=== PATIENT | female | born 1940 | race Caucasian/White ===

== ENCOUNTER → 2016-07-04 | Outpatient (CLI) | payer OTHER, BC ==
[~2016-07-04] MED LIST: ACET-1256 PO; AMIT25TA19 PO; ASPEC81 PO; BIMA0.01 OPB; CHOL100027 PO; LEVO112T17 PO; METH500T37 PO; SIMV-151 PO; SULI200T4 PO
[2016-07-04 13:46] LABS: THYROID STIMULATING HORMONE 1.86 uIu/ml (0.300-4.500)
== END | disposition home or self-care (01) ==
LOC: C.LABPBG 08:09
PROVIDERS: ATTEND Family Medicine
DX: E03.9 Hypothyroidism, unspecified (principal)

== ENCOUNTER → 2016-12-29 | Outpatient (CLI) | payer OTHER, BC ==
[2016-12-29 12:32] LABS: MEAN CORPUSCULAR HGB CONC 33.1 g/dl (32-36); MEAN PLATELET VOLUME 11.2 fL (7.4-10.4); PLATELET COUNT 275 K/uL (130-400)
[2016-12-29 12:59] LABS: ALT/SGPT 22 U/L (12-78); BLOOD UREA NITROGEN 12 mg/dl (7-18); BUN/CREATININE RATIO 15.9 (10-20); CALCIUM 8.6 mg/dl (8.5-10.1); CARBON DIOXIDE 28 mmol/L (21-32); CHLORIDE 107 mmol/L (98-107); CHOLESTEROL 215 mg/dl (0-200); CREATININE 0.74 mg/dl (0.60-1.20); GLUCOSE 83 mg/dl (70-99); POTASSIUM 3.7 mmol/L (3.5-5.1); SODIUM 139 mmol/L (136-145); TRIGLYCERIDES 117 mg/dl (0-150); VERY LOW DENSITY LIPOPROT CALC 23 mg/dl
[2016-12-29 13:09] LABS: ALKALINE PHOSPHATASE 124 U/L (45-117); AST/SGOT 19 U/L (15-37); CHOLESTEROL/HDL RATIO 4.8; FERRITIN 16.8 ng/ml (8.0-388.0); HDL CHOLESTEROL 45 mg/dl; LDL CHOLESTEROL CALCULATED 147 mg/dl
[2016-12-29 13:32] LABS: HEMATOCRIT 42.3 % (37-47); MEAN CELL VOLUME 97.5 fL (80-100); MEAN CORPUSCULAR HEMOGLOBIN 32.3 pg (25-34); RED BLOOD COUNT 4.34 M/uL (4.2-5.4); WHITE BLOOD COUNT 4.93 K/uL (4.8-10.8)
[2016-12-29 13:35] LABS: BASO ABS # 0.13 K/uL (0-0.2); BASOPHIL % 2.7 %; COMPLETE YES; ECHINOCYTES 2+; EOSINOPHIL % 2.7 %; LYMPH ABS # 1.28 K/uL (1.2-3.4); LYMPHOCYTE % 25.9 %; NEUTROPHILS % 58.9 %
== END | disposition home or self-care (01) ==
LOC: C.LABPBG 08:04
PROVIDERS: ATTEND Family Medicine
DX: E03.9 Hypothyroidism, unspecified (principal); I10 Essential (primary) hypertension; E78.5 Hyperlipidemia, unspecified; E61.1 Iron deficiency

== ENCOUNTER → 2017-02-20 | Outpatient (CLI) | payer OTHER, BC ==
--- NOTE | 2017-02-20 15:50 | MAMMOGRAPHY REPORT ---
BILATERAL DIGITAL SCREENING MAMMOGRAM WITH CAD: 02/20/2017 CLINICAL HISTORY: Routine screening. Patient has no complaints. TECHNIQUE: Bilateral CC and MLO views were obtained. Current study was also evaluated with a Compute r Aided Detection (CAD) system. COMPARISON: Comparison is made to exams dated: 02/19/2016 mammogram, 02/12/2015 mammogram, 01/20/2014 m ammogram, 11/19/2012 mammogram - [facility], 02/01/2008 mammogram, and 02/01/2008 mammog jennifer - [facility]. BREAST COMPOSITION: The tissue of both breasts is almost entirely fatty. FINDINGS: There are moderate vascular calcifications and a few scattered benign round calcifications in the breasts. No new suspicious mass, architectural distortion or cluster of microcalcifications i s seen. IMPRESSION: ACR BI-RADS CATEGORY 1: NEGATIVE There is no mammographic evidence of malignancy. A 1 year screening mammogram is recommended. The pa tient will receive written notification of the results. Approximately 10% of breast cancers are not detected with mammography. A negative mammographic report should not delay biopsy if a clinically suggestive mass is present. Tammy Richardson M.D. ay/:02/20/2017 15:10:19 Completion Manager: Coco GARCIA(R)(M), [facility] letter sent: Normal 1/2 BI-RADS Code: ACR BI-RADS Category 1: Negative
== END | disposition home or self-care (01) ==
LOC: C.MAMM 08:11
PROVIDERS: ATTEND Family Medicine
DX: Z12.31 Encounter for screening mammogram for malignant neoplasm of breast (principal)

== ENCOUNTER → 2017-06-26 | Outpatient (CLI) | payer OTHER, BC ==
[2017-06-26 13:01] LABS: BLOOD UREA NITROGEN 10 mg/dl (7-18); CARBON DIOXIDE 28 mmol/L (21-32); GLUCOSE 85 mg/dl (70-99); POTASSIUM 3.7 mmol/L (3.5-5.1); SODIUM 138 mmol/L (136-145)
[2017-06-26 13:11] LABS: CHOLESTEROL 203 mg/dl (0-200); LDL CHOLESTEROL CALCULATED 131 mg/dl
== END | disposition home or self-care (01) ==
LOC: C.LABPBG 07:49
PROVIDERS: ATTEND Family Medicine
DX: E03.9 Hypothyroidism, unspecified (principal); I10 Essential (primary) hypertension; E78.5 Hyperlipidemia, unspecified; E55.9 Vitamin D deficiency, unspecified

== ENCOUNTER → 2017-08-07 | Outpatient (CLI) | payer OTHER, BC ==
[2017-08-07 12:04] LABS: BASO ABS # 0.05 K/uL (0-0.2); EOS % 5.7 %; EOS ABS # 0.27 K/uL (0-0.5); HEMATOCRIT 40.7 % (37-47); HEMOGLOBIN 13.6 g/dL (12.0-16.0); IG# 0.01 K/uL (0.00-0.02); LYMPH % 37.5 %; LYMPH ABS # 1.79 K/uL (1.2-3.4); MEAN CELL VOLUME 93.6 fL (80-100); MEAN CORPUSCULAR HEMOGLOBIN 31.3 pg (25-34); MEAN CORPUSCULAR HGB CONC 33.4 g/dl (32-36); MONO % 7.5 %; MONO ABS # 0.36 K/uL (0.11-0.59); NEUT % 48.1 %; NEUT ABS # 2.29 K/uL (1.4-6.5); PLATELET COUNT 280 K/uL (130-400); RED CELL DISTRIBUTION WIDTH SD 44.8 fL (36.4-46.3); WHITE BLOOD COUNT 4.77 K/uL (4.8-10.8)
== END | disposition home or self-care (01) ==
LOC: C.LABPBG 08:28
PROVIDERS: ATTEND Family Medicine
DX: D64.9 Anemia, unspecified (principal); E03.9 Hypothyroidism, unspecified

== ENCOUNTER → 2017-12-14 | Outpatient (CLI) | payer OTHER, BC | END | disposition home or self-care (01) | LOC: C.LABPBG 09:02 | PROVIDERS: ATTEND Family Medicine | DX: G62.9 Polyneuropathy, unspecified (principal) ==

== ENCOUNTER 2019-10-09 05:07 | Inpatient (IN) ==
--- NOTE | 2019-10-03 15:56 | Anesthesiology Consultation ---
Date of Service October 03, 2019 Assessment & Plan (1) Encounter for pre-operative examination: Chart Review Chart Review: Acceptable Risk for Surgery and Patient NOT seen in Pre Admission Testing History Surgery Operation Date: 10/09/19 07:15 Proposed Procedures p Left Total Hip Replacement - Giorgio Carrero MD Height/Weight Height: 5 ft 4 in Weight: 66.224 kg Allergies Allergy/AdvReac Type Severity Reaction Status Date / Time omeprazole Allergy Severe Chest Pain Verified 10/03/19 14:54 morphine Allergy Mild Rash Verified 10/03/19 14:54 Medications Home Medications Medication Instructions Recorded Confirmed Last Taken walker #1 ea 02/18/19 09/30/19 Unknown amlodipine 5 mg tablet 5 mg PO DAILY #90 tab 05/20/19 10/03/19 Unknown amitriptyline 25 mg tablet 25 mg PO HS #90 tab 07/11/19 10/03/19 Unknown losartan 100 mg tablet 100 mg PO .COMPLEX #90 tab 08/13/19 10/03/19 Unknown levothyroxine 137 mcg tablet 137 mcg PO DAILY #30 tab 08/14/19 10/03/19 Unknown tramadol 50 mg tablet 50 mg PO Q8H PRN #90 tab 08/15/19 10/03/19 Unknown aspirin 81 mg PO QAM 10/03/19 10/03/19 Unknown brimonidine 1 drp OPB BID 10/03/19 10/03/19 Unknown cholecalciferol (vitamin D3) 250 mcg PO QAM 10/03/19 10/03/19 Unknown [Vitamin D3] Past Medical History Medical History Allergic rhinitis Anxiety disorder Avascular necrosis of bone of left hip Degenerative joint disease of left hip Diastolic dysfunction Glaucoma Hiatal hernia Hyperlipidemia Hypertension Hypothyroidism TSH > 8 when checked by PCP in 07/2019. PCP adjusted meds and pt was to have rpt labs but was not completed due to covid shutdown. Iron deficiency Mitral valve insufficiency Osteoporosis Polyneuropathy Tricuspid regurgitation Vitamin D deficiency Past Family History Family History Father Myocardial infarction Mother Depression Colorectal cancer Father Stroke Denies family history of Ovarian cancer Prostate cancer Breast cancer Past Surgical History Surgical History History of colonoscopy History of esophagogastroduodenoscopy (EGD) History of hysterectomy History of tooth extraction S/P appendectomy S/P cataract extraction RT/LEFT S/P dilation and curettage S/P ovarian cystectomy Social History Smoking Status: Never smoker Do You Dip or Chew Tobacco: No Hx Alcohol Use: No Hx Substance Use: No substance use type: does not use Testing Laboratory Results 09/30/19 WBC: 4.14 H/H: 10.9/34.8 PLATELETS: 356 SODIUM: 138 POTASSIUM: 3.7 CHLORIDE: 106 CO2: 25 BUN: 14 CREATININE: 0.75 GLUCOSE: 99 PT: 10.9 PTT: 23.7 INR: 1.0 Electrocardiogram Date: 09/30/19 Findings: + NSR @ (80bpm) Chest X-Ray Date: 09/30/19 FINDINGS: Atherosclerosis of the aortic arch. Cardiac silhouette normal in size. Lungs and pleural spaces clear. Osteopenia suspected. Mildly exaggerated thoracic kyphosis without focal compression deformity. Moderate hiatal hernia. IMPRESSION: 1. No acute cardiopulmonary disease. 2. Moderate hiatal hernia. Echocardiogram Date: 10/11/13 EF: 60-65% Study was technically adequate. No comparison study available. LV systolic function is normal. There is mild cLVH. Focal thickening of the basal septum (sigmoid septum) with no evidence of LV outflow tract obstruction. Grade I diastolic dysfunction. LA is mildly dilated. There is mild mitral and tricuspid regurgitation.
[2019-10-09] MEDS ORDERED: TRANEXAMIC ACID 1,000 MG **IV Pre-op IV SCH (06:00)
[2019-10-09] MEDS ORDERED: FAMOTIDINE 20 MG TAB PO SCH (06:00)
[2019-10-09] MEDS ORDERED: METOCLOPRAMIDE HCL 10 MG TABLET PO SCH (06:00)
[2019-10-09] MEDS ORDERED: ACETAMINOPHEN 500 MG TAB PO SCH (06:00)
[2019-10-09] MEDS ORDERED: LR 15ML/HR IV SCH (06:00)
[2019-10-09] MEDS ORDERED: CEFAZOLIN 2000MG 2,000 MG/15 ML SYR IV SCH (06:00)
[2019-10-09] MEDS ORDERED: LR 60ML/HR IV SCH (06:00)
[2019-10-09] MEDS ORDERED: GABAPENTIN 300 MG CAP PO SCH (06:00)
[2019-10-09] MEDS ORDERED: BUPIVACAINE 0.5 % 5 MG/1 ML PF 10ML VIAL ONE (06:12)
[2019-10-09] MEDS ORDERED: ONDANSETRON INJ 2 MG/ML 2 ML VIAL ONE ×2 (06:13→08:48)
[2019-10-09] MEDS: DEXTROSE 50% 50 ML SYRINGE IV ONE ×2 (06:34→06:55)
[2019-10-09] MEDS ORDERED: ONDANSETRON INJ 2 MG/ML 2 ML VIAL IV ONE (06:45)
[2019-10-09] MEDS ORDERED: DEXTROSE 50% 50 ML SYRINGE IV ONE (06:46)
[2019-10-09] MEDS ORDERED: fentaNYL citrate 100 MCG/2 ML VIAL ONE (06:47)
[2019-10-09] MEDS ORDERED: MIDAZOLAM HCL 1 MG/ML 2ML VIAL ONE (06:47)
--- NOTE | 2019-10-09 06:52 | History & Physical Bridge Note ---
Date of Service October 09, 2019 History & Physical Bridge Note I have examined the patient, reviewed the History & Physical and in the interval since the performance of the History & Physical I have noted the following changes of clinical significance: no changes noted
[2019-10-09] MEDS ORDERED: MoRPHine SULFATE PF 1 MG/ML 10 ML AMP/VIAL ONE (06:55)
[2019-10-09] MEDS ORDERED: BACITRACIN INJ 50,000 UNIT VIAL ONE (06:58)
[2019-10-09] MEDS ORDERED: HYDROmorphone INJ 1 MG/ML SYRINGE IV PRN (06:59)
[2019-10-09] MEDS ORDERED: ATROPINE SULFATE 0.1 MG/ML 10ML SYR IV PRN (06:59)
[2019-10-09] MEDS ORDERED: ePHEDrine sulfate 50 MG/ML AMP IV PRN (06:59)
[2019-10-09] MEDS ORDERED: LIDOCAINE HCL 2% 2 ML VIAL/AMP(20MG/ML) INFIL ONE (07:55)
[2019-10-09] MEDS ORDERED: PHENYLEPHRINE 100MCG/ML 5ML SYR ONE ×2 (07:55→08:30)
[2019-10-09] MEDS ORDERED: GLYCOPYRROLATE 0.2 MG/ML VIAL ONE (07:55)
[2019-10-09] MEDS ORDERED: PROPOFOL IV EMULSION 10 MG/ML 20 ML VIAL IV ONE ×2 (07:55→08:10)
[2019-10-09] MEDS: BUPIVACAINE/EPINEPHRINE 0.5% MPF 1:200,000 10 ML VIAL ONE ×2 (08:04→08:53)
[2019-10-09] MEDS ORDERED: ePHEDrine sulfate 50 MG/ML SYR ONE (08:30)
[2019-10-09] MEDS ORDERED: PHENYLEPHRINE HCL 10 MG/ML VIAL ONE (08:30)
--- NOTE | 2019-10-09 09:12 | Post Operative Brief Note ---
PG Immediate Post Op with CF Date of Surgery October 09, 2019 Pre & Post Diagnosis Operation Date: 10/09/19 07:15 Pre-Op Diagnosis: Left Hip Advanced Degenerative Joint Disease Secondary to Avascular Necrosis Post-Op Diagnosis: Left Hip Advanced Degenerative Joint Disease Secondary to Avascular Necrosis I identified the patient and participated in the time-out.: Yes Procedure Operation Date: 10/09/19 07:15 Actual Procedures p Left Hybrid Total Hip Arthroplasty--Cemented(Left) - Giorgio Carrero MD Surgeon Giorgio Carrero MD Mobile Mechanic Royal, PAC Estimated Blood Loss 200 Findings Consistent with Post-Op Diagnosis Fluids 1400 cc Specimens Specimen Description: A. Left Femoral Head Drains Dobson Catheter (10 Sami) Anesthesia Type Spinal MAC Complications none Disposition Accompanied Patient To Recovery: Yes Disposition: Recovery Room
[2019-10-09] MEDS ORDERED: MEPERIDINE HCL 25 MG/ML CARP/VIAL ONE (09:22)
--- NOTE | 2019-10-09 09:29 | Operative Report ---
Post Operative Report Pre & Post Diagnosis Operation Date: 10/09/19 07:15 Pre-Op Diagnosis: Left Hip Advanced Degenerative Joint Disease Secondary to Avascular Necrosis Post-Op Diagnosis: Left Hip Advanced Degenerative Joint Disease Secondary to Avascular Necrosis I identified the patient and participated in the time-out.: Yes Procedure Operation Date: 10/09/19 07:15 Actual Procedures p Left Hybrid Total Hip Arthroplasty--Cemented(Left) - Giorgio Carrero MD Surgeon iGorgio Carrero MD Senior Clinical Research Scientist Royal, PAC Estimated Blood Loss 200 Findings Consistent with Post-Op Diagnosis Operative findings revealed advanced left hip DJD. It did look like she had a subchondral fracture with avascular necrosis with secondary arthritis. She had some anterior acetabular osteophytes. Small hip joint effusion. Diffuse osteopenia. Fluids 1400 cc. Specimens Left femoral head sent for pathology. Drains None. Anesthesia Type Spinal MAC Complications none Disposition Accompanied Patient To Recovery: Yes Disposition: Recovery Room Indications Patient is an 79-year-old female who is had about a year history of increasing left hip pain discomfort. Over time x-ray showed a vast necrosis with collapse of the femoral head and progressive hip arthritis. She failed all conservative care. She was markedly limited by her hip problem. She was essentially limited to a wheelchair most of the time. Patient indicated for surgical management. Description of Procedure Operative implants consisted of: 1. Biomet size 48 mm G7 acetabular shell. 2. 6.5 cancellus acetabular screws 1 of 35 mm in length and 1 of 20 mm length. 3. Turner hole eliminator. 4. Highly cross-linked polyethylene liner with a 48 mm outer diameter, 32 mm diameter with a stroud placed inferior and posterior. 5. Vale Morenci cemented size 3 high offset femoral stem. 6. +5/32 mm metal articular ball. Patient is taken to the operating room identified and placed on the operating table supine position protectors were properly padded. IV antibiotics arrived by anesthesia team. A spinal anesthetic been implemented holding area. Dobson catheter was placed in sterile fashion. The patient was then placed in the right lateral decubitus position. An axillary roll was placed. A Stulberg hip positioner was used for positioning. The left hip and leg were then prepped and draped in usual sterile fashion. A posterior lateral approach to the left hip was then performed to a curvilinear incision centered over the greater trochanter. Sharp dissection Through subcutaneous tissue down of the IT band gluteal fascia the IT band gluteal fascia then incised longitudinally in line with skin incision. The underlying greater bursa was excised. The piriformis and external rotators were then tagged and taken off the posterior aspect of the hip joint capsule. Great care was taken throughout the procedure protect the sciatic nerve at all times. Posterior capsulotomy was then performed leaving a large flap for later repair. Hip was internally rotated and dislocated. A femoral neck osteotomy cut was made with Final Cut about 6 to 7 mm above the lesser trochanter. Femoral head was removed and sent for pathology. The femur was retracted anteriorly. Attention drawn the acetabulum. The acetabulum labrum was excised. The pulmonary fat was excised. Sequential reaming the acetabular is then performed with size 43 and progressing up to 47. I did reamed a 48. Her bone was extremely soft and cancellus. A 48 mm Biomet G7 acetabular shell was then placed in about 40 degrees lateral opening and 20 degrees of anteversion. It was fixed with two 6.5 cancellus acetabular screws. A trial liner was placed. Attention drawn the femur. Proximal femur was entered with a cookie-cutter followed by canal finder lateralizing reamer. I then broached begin with size 1 progressing to a 3. We got pretty good fit with a 3. I then trialed the hip. The +5 articular ball proceed with great leg lengths equal. Her soft tissue tension was still lax and she did tender with a lever with flexion and internal rotation such that her femoral neck levered on the some anterior pelvic bone. I then used the high offset in order to increase soft tissue tension maximize stability. I did elect to place a stroud inferior and posterior to maximize her stability in flexion. The hip was fully stable in full extension and external rotation. We elected to place these implants. All trial implants were removed. An apex hole eliminator was placed. A highly cross-linked polyethylene liner with a stroud placed inferior and posterior was then placed. I then irrigated the canal extensively. A cement restrictor was placed distally. A double batch Palacos G cement was mixed and injected in the canal. A Vale Morenci size 3 cemented stem was then placed. This is a high offset stem. All extraneous cement was removed. Once cement hardened I trialed the hip again and then placed a +5/32 mm metal articular ball. Hip was located once again found to be stable. Attention drawn toward closing. Nupathe wounds irrigated cups ounce pulsatile lavage solution. I did inject locally with 40 cc of half percent Marcaine with epinephrine. The posterior capsule and external rotators then repaired through drill holes in the posterior trochanter with #2 Tycron suture. The IT band gluteal fascia then closed in 1 PDS suture running fashion the subcutaneous tissue then closed with 2 layers the deep layer #1 Vicryl suture and subcutaneous tissues with 2-0 Dexon suture in a buried interrupted fashion the skin was closed skin celestina. Leg was then cleaned dried and sterile dressing composed Xeroform, 4 x 4's, sterile ABD pad and foam tape was applied. Patient then transferred to the recovery room in stable condition. Patient tolerated procedure well no complications. I attest to the content of the Intraoperative Record and any orders documented therein. Any exceptions are noted below.
[2019-10-09] MEDS ORDERED: DEXTROSE 50% 50 ML SYRINGE IV STA (09:43)
[2019-10-09] MEDS: fentaNYL citrate 100 MCG/2 ML VIAL IV PRN ×4 (09:57→10:19)
--- NOTE | 2019-10-09 09:57 | Anesthesiology Progress Note ---
Date of Service October 09, 2019 Anesthesia Post Procedure Vital Signs Vital Signs: Temp Pulse Pulse Resp BP BP Pulse Ox 10/09/19 09:50 36.8 C 94 H 19 143/90 H 97 10/09/19 09:40 92 H 24 132/73 98 10/09/19 09:30 90 16 125/74 99 10/09/19 09:20 89 16 129/77 100 10/09/19 09:12 36.1 C L 99 H 19 134/67 97 10/09/19 05:37 37.2 C 88 18 144/92 H 99 Transfer of Care Handoff Completed per policy Notes Mental Status: alert / awake / arousable and participated in evaluation Patient Amnestic to Procedure: Yes Nausea / Vomiting: adequately controlled Pain: adequately controlled Airway Patency, RR, SpO2: stable & adequate BP & HR: stable & adequate Hydration State: stable & adequate Neuraxial Anesthesia: was administered and sensory block is resolving Anesthetic Complications: no major complications apparent
--- NOTE | 2019-10-09 10:07 | XRay Report ---
XR hip 1V LT w pelvis CLINICAL HISTORY: 79 years-old Female presenting with IN PACU - A/P PELVIS and LATERAL HIP . TECHNIQUE: Single frontal view of the pelvis and crosstable lateral view of the left hip were obtaine d. COMPARISON: 02/18/2019. FINDINGS: Postsurgical changes of total left hip arthroplasty. Positioning of the femoral component relative to the acetabular component likely relates to positioning of the leg. Expected soft tissue emphysema an d overlying skin celestina. No periprosthetic fracture or lucency. This was portion of bony pelvis inta ct. Moderate joint space loss at the superior right hip joint with moderate osteophytosis. Osteopenia may be present. IMPRESSION: Expected postsurgical appearance status post total left hip arthroplasty. ACT 112: Negative or not required by law. Electronically signed by: Tyson Andre M.D. 10/09/2019 10:06 AM
[2019-10-09] MEDS ORDERED: METOCLOPRAMIDE HCL INJ 5 MG/ML 2 ML VIAL IV PRN (11:16)
[2019-10-09] MEDS ORDERED: NALOXONE HCL 0.4 MG/1 ML VIAL/CARP IV PRN (11:16)
[2019-10-09] MEDS ORDERED: ALUMINUM/MAGNESIUM SUSP 30 ML UDC PO PRN (11:16)
[2019-10-09] MEDS ORDERED: MAGNESIUM HYDROXIDE SUSP 30 ML UDC PO PRN (11:16)
[2019-10-09] MEDS ORDERED: bisacodyL 10 MG SUPP PR PRN (11:16)
[2019-10-09] MEDS ORDERED: HYDROmorphone INJ 0.5 MG/0.5 ML SYR IV PRN (11:16)
[2019-10-09] MEDS: CEFAZOLIN 1000MG 1,000 MG/7.5 ML SYR IV SCH ×3 (11:28→22:50)
[2019-10-09] MEDS: SODIUM CHLORIDE 0.9% 1000ML 1,000 ML IV SCH ×2 (12:24→22:49)
[2019-10-09] MEDS: POLYETHYLENE (MIRALAX) 17 GM PACK PO SCH (12:25)
[2019-10-09] MEDS: CHOLECALCIFEROL 1,000 UNITS 25 MCG TAB PO SCH (12:25)
[2019-10-09] MEDS: LOSARTAN POTASSIUM 50 MG TAB PO SCH ×2 (12:25→21:39)
[2019-10-09] MEDS: KETOROLAC TROMETHAMINE 15 MG/ML VIAL IV SCH ×3 (12:29→22:56)
[2019-10-09] MEDS: ACETAMINOPHEN 500 MG TAB PO SCH ×2 (12:56→21:46)
[2019-10-09] MEDS ORDERED: TRANEXAMIC ACID / 0.7% NACL 1,000 MG/100 ML BAG IV SCH (16:00)
[2019-10-09] MEDS: FERROUS GLUCONATE 324 MG TAB PO SCH (17:18)
[2019-10-09] MEDS: ASCORBIC ACID 500 MG TAB PO SCH (17:18)
[2019-10-09] MEDS: TRAMADOL HCL 50 MG TABLET PO PRN (19:31)
[2019-10-09] MEDS: SENNA 8.6 MG TAB PO SCH (21:39)
[2019-10-09] MEDS: DOCUSATE SODIUM 100 MG CAP PO SCH (21:39)
[2019-10-09] MEDS: ASPIRIN 81 MG ECTAB PO SCH (21:40)
[2019-10-09] MEDS: AMITRIPTYLINE HCL 25 MG TAB PO SCH (21:40)
[2019-10-09] MEDS: BRIMONIDINE TART 0.2% OP SOLN PER DROP CHARGE OPB SCH (21:42)
[2019-10-10] MEDS: ACETAMINOPHEN 500 MG TAB PO SCH ×3 (06:06→21:10)
[2019-10-10] MEDS: KETOROLAC TROMETHAMINE 15 MG/ML VIAL IV SCH ×3 (06:06→18:34)
[2019-10-10] MEDS: LEVOTHYROXINE SODIUM 137 MCG TABLET PO SCH (06:06)
[2019-10-10 07:48] LABS: Basophils # (auto) 0.02 K/uL (0-0.2); Basophils % (auto) 0.3 %; Eosinophils # (auto) 0.09 K/uL (0-0.5); Eosinophils % (auto) 1.3 %; Hematocrit (blood only) 26.7 % (37-47); Hemoglobin 8.6 g/dL (12.0-16.0); Immature Granulocytes # (auto) 0.01 K/uL (0.00-0.02); Immature Granulocytes % (auto) 0.1 %; Lymphocytes % (auto) 15.9 %; Mean Corpuscular Hgb Conc 32.2 g/dL (32-36); Mean Platelet Volume 10.7 fL (7.4-10.4); Monocytes # (auto) 0.66 K/uL (0.11-0.59); Monocytes % (auto) 9.5 %; Neutrophils # (auto) 5.05 K/uL (1.4-6.5); Neutrophils % (auto) 72.9 %; Platelet Count 239 K/uL (130-400); RDW Coefficient of Variation 14.8 % (11.5-14.5); RDW Standard Deviation 46.8 fL (36.4-46.3); Red Blood Count 3.07 M/uL (4.2-5.4); White Blood Count 6.93 K/uL (4.8-10.8)
[2019-10-10 08:18] LABS: Calcium 7.8 mg/dl (8.5-10.1); Creatinine Clr Calc Pharmacy 54.6 ml/min; Est GFR (African American) 93.2; Est GFR (Non-African American) 80.4; Potassium 3.7 mmol/L (3.5-5.1)
[2019-10-10] MEDS: DOCUSATE SODIUM 100 MG CAP PO SCH ×2 (08:35→21:13)
[2019-10-10] MEDS: CHOLECALCIFEROL 1,000 UNITS 25 MCG TAB PO SCH (08:35)
[2019-10-10] MEDS: ASCORBIC ACID 500 MG TAB PO SCH ×2 (08:35→16:30)
[2019-10-10] MEDS: MULTIVITAMIN TAB PO SCH (08:35)
[2019-10-10] MEDS: ASPIRIN 81 MG ECTAB PO SCH ×2 (08:35→21:13)
[2019-10-10] MEDS: BRIMONIDINE TART 0.2% OP SOLN PER DROP CHARGE OPB SCH (08:36)
[2019-10-10] MEDS: LOSARTAN POTASSIUM 50 MG TAB PO SCH ×2 (08:36→21:16)
[2019-10-10] MEDS: AMLODIPINE BESYLATE 5 MG TAB PO SCH (08:36)
[2019-10-10] MEDS: FERROUS GLUCONATE 324 MG TAB PO SCH ×2 (08:37→16:30)
[2019-10-10] MEDS: TRAMADOL HCL 50 MG TABLET PO PRN (08:42)
--- NOTE | 2019-10-10 09:05 | Progress Notes ---
DATE: 10/10/2019 SUBJECTIVE: An 79-year-old female postop day 1 from a left hybrid total hip arthroplasty. She is doing pretty well this morning. Pain seems to be controlled. Some discomfort but seems to be much better than she was preoperatively. Denies any chest pain or shortness of breath. Not feeling dizzy or lightheaded. OBJECTIVE: VITAL SIGNS: Temperature 37.1. Vital signs are stable. GENERAL: Shows a pleasant elderly female. She is sitting up in bed, looks completely comfortable. LUNGS: Clear to auscultation. HEART: Has a regular rate and rhythm. ABDOMEN: Soft, nontender, nondistended. EXTREMITIES: Grossly neurovascularly intact except as follows: Examination of the left lower extremity reveals the leg lengths to be equal. Her dressing is clean, dry and intact. Thigh is soft and supple. She can dorsiflex and plantarflex her foot appropriately. She is neurologically intact. LABORATORY DATA: Hemoglobin 8.6, hematocrit 26.7. Electrolytes are pending. ASSESSMENT: An 79-year-old white female postoperative day 1 from a left hybrid total hip arthroplasty, doing well. Pain seems to be controlled. She is slightly anemic, but asymptomatic. Pain seems to be controlled. Hip is located. She is neurologically intact. PLAN: 1. DVT prophylaxis including thigh-high TEDs, SCDs, and aspirin twice a day. 2. PT/OT. She can weightbear as tolerated. Left total hip protocol. 3. Pain control, doing pretty well with current pain regimen. 4. Disposition: She is hoping to be discharged to home. She can have home health and she has got some family support that is going to come and stay with her.
[2019-10-10] MEDS: ONDANSETRON INJ 2 MG/ML 2 ML VIAL IV PRN (18:34)
[2019-10-10] MEDS: BRIMONIDINE TARTRATE 0.2% 5ML OP SCH (21:12)
[2019-10-10] MEDS: AMITRIPTYLINE HCL 25 MG TAB PO SCH (21:13)
[2019-10-10] MEDS: SENNA 8.6 MG TAB PO SCH (21:15)
[2019-10-11] MEDS: KETOROLAC TROMETHAMINE 15 MG/ML VIAL IV SCH ×2 (03:11→08:24)
[2019-10-11] MEDS: LEVOTHYROXINE SODIUM 137 MCG TABLET PO SCH (06:15)
[2019-10-11] MEDS: ACETAMINOPHEN 500 MG TAB PO SCH ×3 (06:15→21:37)
[2019-10-11 07:18] LABS: Hematocrit (blood only) 27.2 % (37-47); Hemoglobin 8.8 g/dL (12.0-16.0)
--- NOTE | 2019-10-11 07:50 | Progress Notes ---
DATE: 10/11/2019 SUBJECTIVE: An 79-year-old female postop day 2 from a left total hip replacement. She is doing pretty well this morning. Pain is controlled. She was having some groin pain previously, but seems to be controlled. No chest pain or shortness of breath. Not feeling dizzy or lightheaded. OBJECTIVE: VITAL SIGNS: Temperature 37.5. Vital signs stable. GENERAL: Shows a pleasant elderly female. She is awake, alert and oriented. I had to wake her this morning. EXTREMITIES: Examination of the left hip reveals leg lengths to be equal. Dressing is clean, dry and intact. Thigh is soft and supple. Hip is located. NEUROLOGIC: She is neurologically intact. LABORATORY DATA: Hemoglobin is 8.8, hematocrit 27.2, slightly increased from yesterday. ASSESSMENT: An 79-year-old female postoperative day 2 from a left hip replacement, doing pretty well. Pain is reasonably well controlled. Biggest thing is going to be her function and ability to be safe in her home environment. Pain is controlled. Hip is located. PLAN: 1. DVT prophylaxis including thigh-high TEDs, SCDs, and aspirin twice a day. 2. PT/OT. She can weightbear as tolerated in her left lower extremity. Needs to obey hip precautions. 3. Pain control, doing okay with current pain regimen. We are going to stick to Tylenol and use tramadol, which she has used previously. 4. Disposition: We will see how she does in therapy today. Plans to discharge her to home with some home health. Her son is going to come and stay with her today and her daughter is going to be there for a week after that.
[2019-10-11] MEDS: CHOLECALCIFEROL 1,000 UNITS 25 MCG TAB PO SCH (08:24)
[2019-10-11] MEDS: MULTIVITAMIN TAB PO SCH (08:24)
[2019-10-11] MEDS: AMLODIPINE BESYLATE 5 MG TAB PO SCH (08:25)
[2019-10-11] MEDS: ASCORBIC ACID 500 MG TAB PO SCH ×2 (08:25→17:46)
[2019-10-11] MEDS: FERROUS GLUCONATE 324 MG TAB PO SCH ×2 (08:25→17:47)
[2019-10-11] MEDS: BRIMONIDINE TARTRATE 0.2% 5ML OP SCH ×2 (08:25→21:35)
[2019-10-11] MEDS: ASPIRIN 81 MG ECTAB PO SCH ×2 (08:25→21:36)
[2019-10-11] MEDS: LOSARTAN POTASSIUM 50 MG TAB PO SCH ×2 (08:25→21:47)
[2019-10-11] MEDS: DOCUSATE SODIUM 100 MG CAP PO SCH ×2 (08:25→21:35)
[2019-10-11] MEDS: ONDANSETRON INJ 2 MG/ML 2 ML VIAL IV PRN ×2 (09:01→16:47)
[2019-10-11] MEDS: POLYETHYLENE (MIRALAX) 17 GM PACK PO SCH (13:33)
[2019-10-11] MEDS: AMITRIPTYLINE HCL 25 MG TAB PO SCH (21:36)
[2019-10-11] MEDS: SENNA 8.6 MG TAB PO SCH (21:36)
[2019-10-12] MEDS: TRAMADOL HCL 50 MG TABLET PO PRN (01:27)
[2019-10-12] MEDS: LEVOTHYROXINE SODIUM 137 MCG TABLET PO SCH (05:30)
[2019-10-12] MEDS: ACETAMINOPHEN 500 MG TAB PO SCH (05:30)
[2019-10-12] MEDS: BRIMONIDINE TARTRATE 0.2% 5ML OP SCH (08:37)
[2019-10-12] MEDS: CHOLECALCIFEROL 1,000 UNITS 25 MCG TAB PO SCH (08:37)
[2019-10-12] MEDS: FERROUS GLUCONATE 324 MG TAB PO SCH (08:37)
[2019-10-12] MEDS: ASCORBIC ACID 500 MG TAB PO SCH (08:37)
[2019-10-12] MEDS: MULTIVITAMIN TAB PO SCH (08:37)
[2019-10-12] MEDS: AMLODIPINE BESYLATE 5 MG TAB PO SCH (08:37)
[2019-10-12] MEDS: DOCUSATE SODIUM 100 MG CAP PO SCH (08:37)
[2019-10-12] MEDS: ASPIRIN 81 MG ECTAB PO SCH (08:37)
[2019-10-12] MEDS: LOSARTAN POTASSIUM 50 MG TAB PO SCH (08:37)
--- NOTE | 2019-10-12 09:15 | Progress Notes ---
DATE: 10/12/2019 SUBJECTIVE: An 79-year-old female now 3 days out from a hybrid left total hip replacement. She is doing better this morning. She had a little bit low blood pressure yesterday and was feeling a little dizzy. Feeling better this morning. No chest pain or shortness of breath. Not feeling dizzy or lightheaded. Her hip pain is controlled. OBJECTIVE: VITAL SIGNS: Temperature 36.9. Vital signs stable. Blood pressure 101/60. GENERAL: Shows a pleasant elderly female. She is lying in bed. She is awake, alert and oriented. She looks comfortable. EXTREMITIES: Examination of the left leg reveals incision to be clean, dry and intact. Some mild swelling. Her leg lengths are equal. Hip is located. She is neurologically intact. ASSESSMENT: An 79-year-old female postoperative day 3 from a left hybrid total hip replacement, doing pretty well. Had some hypotension yesterday with mild symptoms, but better this morning. Pain is controlled. Hip is located. She is neurologically intact. PLAN: 1. DVT prophylaxis including thigh-high TEDs, SCDs, and aspirin twice a day. 2. PT/OT. She can weightbear as tolerated in the left lower extremity. Needs to obey hip precautions. 3. Pain control. We are going to stick to Tylenol as much as possible. We will use tramadol only as needed. 4. Anemia. She has got some mild underlying anemia. She is asymptomatic and her hemoglobin and hematocrit are stable. 5. Disposition: Plan to discharge her home with some home health and her family's assistance, hopefully later today after therapy.
--- NOTE | 2019-10-15 11:16 | Discharge Summary ---
Date of Service October 15, 2019 Admission HPI Per Admitting Provider Documented in admission H & P Discharge Data Consultations 10/10/19 08:00 Consult Case Management - Discharge Planning Routine Procedures Performed Operation Date: 10/09/19 07:15 Actual Procedures p Left Total Hip Arthroplasty--Cemented(Left) - Giorgio Carrero MD Hospital Course (1) Degenerative joint disease of left hip: (2) Avascular necrosis of bone of left hip: 79-year-old female admitted on 10/09/2019 underwent left total hip arthroplasty. She tolerated the procedure well there were no complications. She was transferred to the PACU postoperatively and later the orthopedic floor for further care. She was given Ancef for antibiotic prophylaxis. She was also given JUAN DANIEL stockings, SCDs, aspirin for DVT prophylaxis. Her hemoglobin, hematocrit, and vital signs were monitored during her hospital stay. She did develop some postoperative anemia but did not require any blood transfusions. She had some hypotension on postoperative day 2 which did improve. There were no complications during her hospital stay. By postoperative day 3 she was tolerating a regular diet. She is participating in physical therapy and her pain was reasonably controlled with oral pain medicine. Discharge Instructions She was discharged home step with home health services. She was given printed discharge instructions as well as new prescriptions for Tylenol, aspirin, iron supplement and tramadol. Continue her normal home medications. She can continue weightbearing as tolerated and should obey hip precautions at all times. Continue physical therapy. Continue JUAN DANIEL stockings for DVT prophylaxis. Follow-up with Dr. Carrero in approximately 2 weeks or sooner if there are any problems or concerns. Coding Level of Care Code None Diagnoses Degenerative joint disease of left hip M16.12 Avascular necrosis of bone of left hip M87.052
== END 2019-10-12 11:12 | disposition home health service (06) | DRG 470 ==
LOC: ASU 05:07 → 3E 09:23
DX: Z81.8 Family history of other mental and behavioral disorders; Z60.2 Problems related to living alone; F41.9 Anxiety disorder, unspecified; Z88.8 Allergy status to other drugs, medicaments and biological substances; M89.752 Major osseous defect, left pelvic region and thigh; E55.9 Vitamin D deficiency, unspecified; E03.9 Hypothyroidism, unspecified; Z82.49 Family history of ischemic heart disease and other diseases of the circulatory system; I10 Essential (primary) hypertension; Z79.82 Long term (current) use of aspirin; Z79.899 Other long term (current) drug therapy; M81.0 Age-related osteoporosis without current pathological fracture; Z91.81 History of falling; H40.9 Unspecified glaucoma; M16.7 Other unilateral secondary osteoarthritis of hip; Z88.5 Allergy status to narcotic agent; M87.852 Other osteonecrosis, left femur; D64.9 Anemia, unspecified; F32.9 Major depressive disorder, single episode, unspecified

== ENCOUNTER 2024-08-22 12:32 | Observation (INO) ==
--- NOTE | 2024-08-22 12:52 | Emergency Department Note ---
Impression & Plan Atrial fibrillation with RVR, MAGAÑA (dyspnea on exertion) ED Provider Note NAME: BRANDEE VELEZ AGE: 83 SEX: F : 1940 ARRIVES VIA: Walk-In INFORMANT: Patient, son, prior records ED PROVIDER(S): Kevin Licona MD CHIEF COMPLAINT: Dyspnea on exertion, new onset A-fib with RVR MEDICAL DECISION MAKING: Patient presents due to concern for MAGAÑA and noted to be in A-fib with RVR. IV was established and blood work was obtained. Patient was ordered IV Cardizem 10 mg. Patient did have improvement in her rate from the 140s to the 90s. Patient with a normal white count H&H and platelet count. The patient's kidney function is unremarkable. Troponin not elevated. TSH normal. Chest x-ray stable. Patient was ordered IV heparin. I did speak the on-call hospital service Dr. Evans and the patient was admitted to the medicine service. Critical Care: I have personally spent 37 minutes of critical care time in direct management of this patient. This includes bedside care, interpretation of diagnostic studies, and testing, discussion with consultants, patient, and family members, and other require inpatient management activities. This 37 minutes is in excess of all separately billable procedures. Discussion w/ other healthcare providers: Dr. Evans inpatient medicine service Prior /Outside records reviewed: I reviewed part of a wellness visit from earlier today from [facility]. The patient was seen for wellness exam was noted to be in new onset A-fib. Patient with history of dyspnea on exertion which is ongoing unsure as without this could be related to A-fib but has reported albuterol helps. Differential diagnosis: Premature contractions, electrolyte abnormality, cardiac dysrhythmia, thyroid dysfunction, infection, toxicologic, anxiety among others were considered. Diagnostics, as interpreted by me: ECG: A-fib RVR, rate of 132, normal QRS duration, normal axis no obvious ST elevations. Cardiac monitoring: An order was placed for continuous cardiac monitoring. The monitor shows a rate of 132 with tachycardic and irregularly irregular rhythm. Patient was placed on pulse oximetry Medical decision rules: None Imaging studies: I informally interpreted the patient's Chest x-ray does not show obvious pneumonia or pneumothorax with formal report to follow. HPI: Patient presents due to concern for new onset A-fib. Patient reportedly was seen for wellness visit and was noted to be in A-fib RVR. The patient does not have any prior history and does not follow with cardiology. The patient reports that she has had exertional shortness of breath. Patient states that she does have chronic leg swelling but this has been unchanged. The patient states at rest she is not short of breath. No falls or trauma. Patient denies any upper respiratory symptoms. An occasional chronic cough but this was determined to be allergic in nature in the past. Patient denies any abdominal pain. Patient denies any thyroid dysfunction or history. PAST MEDICAL HISTORY: See Below PAST SURGICAL HISTORY: See Below SOCIAL HISTORY: See Below HOME MEDICATIONS: See Below ALLERGIES: See Below VITALS: See Below PHYSICAL EXAMINATION: GENERAL: NAD, non-toxic. EYE EXAM: Normal conjunctiva. PERRL, no anisocoria and EOM's grossly intact w/o pain. OROPHARYNX: Moist mucus membranes, grossly normal dentition. NECK: Trachea midline, no stridor. Supple, no nuchal rigidity, no adenopathy, non-tender. No signs of meningismus. FROM of the neck with good chin to chest and neck extension. LUNGS: Clear to auscultation. Normal chest wall mechanics. HEART: Tachycardic and irregularly irregular, no MRG. ABDOMEN: Abdomen soft, non-tender, no masses, no rebound or guarding. BACK: No CVA TTP. SKIN: No rashes and no bruising. UPPER EXTREMITIES: Upper extremities are grossly normal. LOWER EXTREMITIES: Grossly normal, no edema. NEURO EXAM: A&O x3, cranial nerves II-XII grossly intact, normal speech, moves all 4 extremities. Past Med/Surg History Problem List (Updated 08/22/24 @ 19:36 by Kevin Licona MD) MAGAÑA (dyspnea on exertion) (Acute) Atrial fibrillation with RVR (Acute) New onset atrial fibrillation Atrial fibrillation with RVR Large hiatal hernia Moderate tricuspid regurgitation Mild mitral regurgitation Right knee DJD Lumbar spondylosis Thoracic kyphosis Arthritis of right hip Lumbar spondylosis Left knee DJD Esophageal reflux Depression B12 deficiency Degenerative joint disease of left hip Vitamin D deficiency Tricuspid regurgitation Polyneuropathy Osteoporosis Iron deficiency Hypothyroidism Hypertension Hyperlipidemia Glaucoma Diastolic dysfunction Anxiety disorder Allergic rhinitis Surgical History History of left hip replacement History of esophagogastroduodenoscopy (EGD) History of colonoscopy History of tooth extraction Avascular necrosis of bone 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) Status post left total hip arthroplasty S/P appendectomy S/P cataract extraction RT/LEFT S/P ovarian cystectomy History of hysterectomy S/P dilation and curettage Family History Father Myocardial infarction age 50s Stroke Mother Depression Colorectal cancer Brother Coronary heart disease S/P CABG (coronary artery bypass graft) Denies family history of Ovarian cancer Prostate cancer Breast cancer Social History Smoking Status: Never smoker Second Hand Exposure: No; Do You Dip or Chew Tobacco: No; Hx Alcohol Use: No Hx Substance Use: No Preferred Language: Tamazight Communication Ability: Effective Visual Impairment: No Limitations Hearing Ability: Normal Passenger Train Braker Required: No Beliefs That Will Affect Care: None marital status: / Current Living Situation: Alone current occupational status: retired current occupation: equipment operator warehouse How many Children do You have: 2 Feels Safe at Home: Yes Childhood Exposure to Second-Hand Smoke: No Diet: regular caffeine: Yes (tea/ soda ) during the past year weight has: remained stable Dental Care, Regularly: No Physical Activity Frequency: Daily Physical Activity Frequency Comment: housework; outside work Seatbelt Use: always Sunscreen Use: No Assistive Devices: Walker Allergies Allergies Allergy/AdvReac Type Severity Reaction Status Date / Time morphine Allergy Mild Rash Verified 08/22/24 10:56 nirmatrelvir Allergy Mild Rash Verified 08/22/24 10:56 [From Paxlovid (EUA)] ritonavir Allergy Mild Rash Verified 08/22/24 10:56 [From Paxlovid (EUA)] omeprazole AdvReac Severe Chest Pain Verified 08/22/24 10:56 doxycycline AdvReac Mild Nausea Verified 08/22/24 10:56 Home Meds Home Medications Medication Instructions Recorded Confirmed aspirin 81 mg tablet,delayed 81 mg PO DAILY 08/16/21 08/22/24 release (Adult Aspirin Regimen) ibuprofen 200 mg capsule 200 mg PO Q6H PRN Pain 02/20/23 08/22/24 mecobalamin (vitamin B12) 1,000 1,000 mcg PO DAILY 07/23/24 08/22/24 mcg lozenges amlodipine 2.5 mg tablet 2.5 mg PO DAILY 08/22/24 08/22/24 Previous Rx's Medication Instructions Recorded amitriptyline 25 mg tablet 25 mg PO HS #90 tabs 10/16/23 fluticasone propionate 50 2 spray intranasal DAILY PRN 03/04/24 mcg/actuation nasal Congestion #16 grams spray,suspension losartan 100 mg tablet 100 mg PO DAILY 90 days #90 tabs 04/03/24 ferrous gluconate 324 mg (38 mg 324 mg PO DAILY #90 tabs 05/20/24 iron) tablet levothyroxine 112 mcg tablet 112 mcg PO DAILY #90 tabs 06/05/24 albuterol sulfate 90 mcg/actuation 2 puff inhalation Q6H PRN 07/23/24 aerosol inhaler shortness of breath or wheezing #8.5 grams famotidine 20 mg tablet 20 mg PO DAILY #90 tabs 08/22/24 Results & Data (ED) Vital Signs Vital Signs - 24 hr 08/22/24 12:37 08/22/24 13:04 Temperature 36.6 C Temperature Source Temporal Artery Scan Pulse Rate 140 H 132 H Respiratory Rate 20 Respiratory Effort / Characteristics Non-Labored Spontaneous Respiratory Depth Normal Blood Pressure 145/99 H Blood Pressure Mean 114 Pulse Oximetry 96 Oxygen Delivery Method Room Air Sepsis Recent Fever Within 48 Hours No Sepsis New/Unexplained Change in Mental Status N/A Sepsis Action Taken by Nursing No Action Required Home Medications Current Medication List: was personally reviewed by me Laboratory Data Attestation: I reviewed the patient's lab results. 08/22/24 12:32 08/22/24 12:32 Lab Results 08/22/24 Range/Units 12:32 WBC 5.11 (4.8-10.8) K/ul RBC 4.59 (4.20-5.40) M/uL Hgb 15.2 (12.0-16.0) g/dl Hct 44.4 (37.0-47.0) % MCV 96.7 (80.0-100.0) fL MCH 33.1 (25.0-34.0) pg MCHC 34.2 (32.0-36.0) g/dL RDW Std Deviation 46.3 (36.4-46.3) fL RDW Coeff of Floyd 13.0 (11.5-14.5) % Plt Count 239 (130-400) K/uL MPV 11.4 (9.4-12.4) fL Immature Gran % (Auto) 0.2 % Neut % (Auto) 64.4 % Lymph % (Auto) 22.7 % [place] % (Auto) 8.4 % Eos % (Auto) 2.7 % Baso % (Auto) 1.6 % Neut # (Auto) 3.29 (1.40-6.50) K/uL Lymph # (Auto) 1.16 L (1.20-3.40) K/uL [place] # (Auto) 0.43 (0.11-0.59) K/uL Eos # (Auto) 0.14 (0.00-0.50) K/uL Baso # (Auto) 0.08 (0.00-0.20) K/uL Immature Gran # (Auto) 0.01 (0.01-0.20) K/uL PT 11.0 (9.0-12.0) Seconds INR 1.0 (0.9-1.1) APTT 24 (21-31) Seconds PTT Ratio 0.9 Sodium 138 (136-145) mmol/L Potassium 3.7 (3.5-5.1) mmol/L Chloride 104 (98-107) mmol/L Carbon Dioxide 29 (21-32) mmol/L Anion Gap 5 (3-11) BUN 16 (6-23) mg/dl Creatinine 0.73 (0.6-1.2) mg/dl Est Cr Clr Drug Dosing Not Reportable eGFR 81.04 BUN/Creatinine Ratio 21.9 H (10-20) Glucose 103 H (70-99(Fasting)) mg/dl Calcium 9.4 (8.6-10.3) mg/dl Phosphorus 3.6 (2.5-4.9) mg/dl Magnesium 2.0 (1.7-2.4) mg/dl Total Bilirubin 0.9 (0.2-1.0) mg/dl AST 29 (13-39) U/L ALT 23 (7-52) U/L Alkaline Phosphatase 113 H (34-104) U/L Troponin I High Sens 6.8 (0-14) pg/ml Total Protein 7.1 (6.0-8.3) gm/dl Albumin 4.2 (3.4-5.0) gm/dl Globulin 2.9 (2.5-4.0) gm/dl Albumin/Globulin Ratio 1.4 (0.9-2) TSH 2.202 (0.300-4.500) uIu/ml Administered Medications Famotidine (Famotidine 20 Mg Tab) 20 mg PO DAILY [facility] Stop: 09/21/24 18:19 Last Admin: 08/22/24 18:33 Dose: 20 mg Documented By: ABNER Heparin Sodium/Dextrose (Heparin 74448 Unit/500 Ml D5w) 25,000 units in 500 mls @ 14 mls/hr IV .Q24H [facility]; Protocol Stop: 09/21/24 14:14 Last Admin: 08/22/24 14:46 Dose: 700 units/hr, 14 mls/hr Documented By: LOI Co-signed By: LINO Metoprolol Tartrate (Metoprolol Tartrate 25 Mg Tab) 12.5 mg PO QID PETER Stop: 09/21/24 17:59 Last Admin: 08/22/24 18:33 Dose: 12.5 mg Documented By: ABNER Discontinued Medications Diltiazem HCl (Diltiazem Hcl 5 Mg/Ml 5 Ml Vial) 10 mg IV NOW STA Stop: 08/22/24 13:14 Last Admin: 08/22/24 13:27 Dose: 10 mg Documented By: LOI Co-signed By: LINO Heparin Sodium/Dextrose (Heparin Iv Adult Wt-Based Low-Dose *No* Initial Bolus Protocol) 1 each IV ONE STA; Protocol Stop: 08/22/24 13:48 Last Admin: 08/22/24 14:46 Dose: 1 each Documented By: LOI Sodium Chloride (Nss) 500 mls @ 999 mls/hr IV .Q31M ONE Stop: 08/22/24 13:43 Last Infusion: 08/22/24 14:05 Dose: Infused Documented By: Admin: 08/22/24 13:27 Dose: 999 mls/hr Documented By: LOI Metoprolol Tartrate (Metoprolol Tartrate 1 Mg/Ml Vial) 5 mg IV NOW STA Stop: 08/22/24 14:17 Last Admin: 08/22/24 14:45 Dose: 5 mg Documented By: LOI Imaging Data Radiologist's Impression: Chest X-Ray 08/22/24 12:53 XR chest 1V portable CLINICAL HISTORY: Dysrhythmia COMPARISON STUDY: 11/06/2023 FINDINGS: Stable large hiatal hernia. Stable cardiomegaly without pulmonary vascular congestion. There is stable mild blunting of the left costophrenic angle. Otherwise the lungs remain aerated. IMPRESSION: Stable exam. ACT 112: Negative or not required by law. Electronically signed by: Manny Chavez M.D. 08/22/2024 1:20 PM Discharge Plan Visit Data Chief Complaint: Cardiac Assessment Stated Complaint: PT STATES THEY ARE IN AFIB ED Provider: Kevin Licona Discharge Problem: Atrial fibrillation with RVR, MAGAÑA (dyspnea on exertion) Discharge Instructions Interventions: ED Discharge Assessment Last Done: 08/22/24 18:20
[2024-08-22 13:17] LABS: Basophils # (auto) 0.08 K/uL (0.00-0.20); Basophils % (auto) 1.6 %; Eosinophils # (auto) 0.14 K/uL (0.00-0.50); Eosinophils % (auto) 2.7 %; Hematocrit (blood only) 44.4 % (37.0-47.0); Hemoglobin 15.2 g/dl (12.0-16.0); Immature Granulocytes # (auto) 0.01 K/uL (0.01-0.20); Immature Granulocytes % (auto) 0.2 %; Lymphocytes # (auto) 1.16 K/uL (1.20-3.40); Lymphocytes % (auto) 22.7 %; Mean Corpuscular Hemoglobin 33.1 pg (25.0-34.0); Mean Corpuscular Hgb Conc 34.2 g/dL (32.0-36.0); Mean Corpuscular Volume 96.7 fL (80.0-100.0); Mean Platelet Volume 11.4 fL (9.4-12.4); Monocytes # (auto) 0.43 K/uL (0.11-0.59); Monocytes % (auto) 8.4 %; Neutrophils # (auto) 3.29 K/uL (1.40-6.50); Neutrophils % (auto) 64.4 %; Platelet Count 239 K/uL (130-400); RDW Standard Deviation 46.3 fL (36.4-46.3); Red Blood Count 4.59 M/uL (4.20-5.40); White Blood Count 5.11 K/ul (4.8-10.8)
--- NOTE | 2024-08-22 13:21 | XRay Report ---
XR chest 1V portable CLINICAL HISTORY: Dysrhythmia COMPARISON STUDY: 11/06/2023 FINDINGS: Stable large hiatal hernia. Stable cardiomegaly without pulmonary vascular congestion. Ther e is stable mild blunting of the left costophrenic angle. Otherwise the lungs remain aerated. IMPRESSION: Stable exam. ACT 112: Negative or not required by law. Electronically signed by: Manny Chavez M.D. 08/22/2024 1:20 PM
--- NOTE | 2024-08-22 13:24 | Electrocardiogram Report ---
Test Reason : Blood Pressure : */* mmHG Vent. Rate : 132 BPM Atrial Rate : * BPM P-R Int : * ms QRS Dur : 82 ms QT Int : 284 ms P-R-T Axes : * 72 -9 degrees QTcB Int : 420 ms Atrial fibrillation with rapid ventricular response Low voltage QRS Abnormal ECG When compared with ECG of 25-Aug-2023 23:28, Atrial fibrillation has replaced Sinus rhythm Vent. rate has increased by 51 bpm Nonspecific T wave abnormality now evident in Inferior leads Confirmed by Randy Mcgill ([id number]) on 08/22/2024 1:23:46 PM Referred By: REFERRED SELF Confirmed By: Randy Mcgill
[2024-08-22] MEDS: SODIUM CHLORIDE 0.9% 500 ML IV ONE (13:27)
[2024-08-22] MEDS: dilTIAZem HCl 5 MG/ML 5 ML VIAL IV STA (13:27)
[2024-08-22 13:33] LABS: Alanine Aminotransferase 23 U/L (7-52); Albumin Globulin Ratio 1.4 (0.9-2); Albumin Level 4.2 gm/dl (3.4-5.0); Alkaline Phosphatase 113 U/L (34-104); Anion Gap 5 (3-11); Aspartate Aminotransferase 29 U/L (13-39); BUN Creatinine Ratio 21.9 (10-20); Bilirubin,Total 0.9 mg/dl (0.2-1.0); Blood Urea Nitrogen 16 mg/dl (6-23); Calcium 9.4 mg/dl (8.6-10.3); Carbon Dioxide 29 mmol/L (21-32); Chloride 104 mmol/L (98-107); Globulin 2.9 gm/dl (2.5-4.0); Glucose 103 mg/dl (70-99(Fasting)); Phosphorus 3.6 mg/dl (2.5-4.9); Potassium 3.7 mmol/L (3.5-5.1); Sodium 138 mmol/L (136-145); Total Protein 7.1 gm/dl (6.0-8.3)
[2024-08-22 13:36] LABS: Partial Thromboplastin Ratio 0.9; Partial Thromboplastin Time 24 Seconds (21-31)
[2024-08-22 13:37] LABS: Troponin I High Sensitivity 6.8 pg/ml (0-14)
[2024-08-22 13:45] LABS: Thyroid Stimulating Hormone 2.202 uIu/ml (0.300-4.500)
--- NOTE | 2024-08-22 13:49 | History & Physical Report ---
Date of Service August 22, 2024 Assessment & Plan (1) Atrial fibrillation with RVR: (2) New onset atrial fibrillation: Plan Shante is a pleasant 83-year-old female who presented on 01/22 for new onset A-fib RVR. #New onset atrial fibrillation with RVR Troponin WNL TSH WNL Diltiazem 10 mg IV x 1 in the ED; despite this patient's HR remained ~130 Metoprolol tartrate 5 mg IV PRN on-call for HR >130 bpm Echocardiogram ordered, pending Patient not currently anticoagulated [id number]: 4 Heparin IV started in the ED, with plan to transition to Eliquis Start metoprolol tartrate 12.5 mg p.o. QID Chronic stable conditions: HTNamlodipine, losartan Hypothyroidismthyroxine GERDfamotidine Disposition: Obs -admit to PCU telemetry Full code Heart healthy diet VTE PPx: IV heparin History of Present Illness Chief Complaint: Cardiac assessment Primary Care Provider: Ofelia Cummings DO Shante is a pleasant 83-year-old female with PMH of anxiety, glaucoma, HLD, HTN, hypothyroidism, iron deficiency, depression, and DJD. She was referred to the ED on 08/22 for new onset atrial fibrillation. Patient was at her wellness visit this morning for intermittent SOB. However on arrival, she was found to be tachycardic, and an EKG was taken that showed new onset A-fib with RVR. Patient reports she does not experience SOB at rest, but has been having dyspnea on exertion for the past 3 years. She denies chest palpitations. She does feel intermittent lightheadedness at times, which he attributes to vertigo, but denies dizziness like the room is spinning. Patient did not take her regular morning medicines today, as she was unsure if she should take it prior to blood work being drawn. She takes a baby aspirin daily for preventative prophylaxis; no history of heart stents or strokes. No PMH of diabetes, PA, heart failure, or DVT/PE. She does have a history of hypertension. The only recent change in medication was that she started on an butyryl inhaler in May when she had bronchitis; no prior history of asthma. She is still taking the albuterol inhaler twice per day for her MAGAÑA. She does have a history of issues with her thyroid, but is currently taking levothyroxine 112. No sick contacts. She does not use supplemental oxygen at home or CPAP at night. No prior history of issues with blood thinners, bleeding disorders, or GI bleeds. Patient denies smoking, tobacco use, or recent alcohol use. Patient is hypertensive at 145/99 and tachycardic at 132 bpm at time of admission. ED course: Diltiazem 10 mg IV Heparin IV NSS 500 mL IV ROS: Patient endorses lightheadedness, staggering at times, dry cough (attributes to allergies), and conversational dyspnea/MAGAÑA (which has been ongoing for the past 3 years) Patient denies fever, chills, night-sweats, dizziness, headache, chest pain, chest palpitations, SOB at rest, pleuritic CP, hemoptysis, abdominal pain, N/V/D, changes in urinary bowel habits, burning with urination, or blood in the urine or stool. Allergies Allergy/AdvReac Type Severity Reaction Status Date / Time morphine Allergy Mild Rash Verified 08/22/24 10:56 nirmatrelvir Allergy Mild Rash Verified 08/22/24 10:56 [From Paxlovid (EUA)] ritonavir Allergy Mild Rash Verified 08/22/24 10:56 [From Paxlovid (EUA)] omeprazole AdvReac Severe Chest Pain Verified 08/22/24 10:56 doxycycline AdvReac Mild Nausea Verified 08/22/24 10:56 Home Medications Medication Instructions Recorded Confirmed Type aspirin 81 mg tablet,delayed 81 mg PO DAILY 08/16/21 08/22/24 History release (Adult Aspirin Regimen) ibuprofen 200 mg capsule 200 mg PO Q6H PRN Pain 02/20/23 08/22/24 History amitriptyline 25 mg tablet 25 mg PO HS #90 tabs 10/16/23 08/22/24 Rx fluticasone propionate 50 2 spray intranasal DAILY PRN 03/04/24 08/22/24 Rx mcg/actuation nasal Congestion #16 grams spray,suspension losartan 100 mg tablet 100 mg PO DAILY 90 days #90 tabs 04/03/24 08/22/24 Rx ferrous gluconate 324 mg (38 mg 324 mg PO DAILY #90 tabs 05/20/24 08/22/24 Rx iron) tablet levothyroxine 112 mcg tablet 112 mcg PO DAILY #90 tabs 06/05/24 08/22/24 Rx albuterol sulfate 90 mcg/actuation 2 puff inhalation Q6H PRN 07/23/24 08/22/24 Rx aerosol inhaler shortness of breath or wheezing #8.5 grams mecobalamin (vitamin B12) 1,000 1,000 mcg PO DAILY 07/23/24 08/22/24 History mcg lozenges amlodipine 2.5 mg tablet 2.5 mg PO DAILY 08/22/24 08/22/24 History famotidine 20 mg tablet 20 mg PO DAILY #90 tabs 08/22/24 08/22/24 Rx Past Med/Surg History Problem List (Updated 08/22/24 @ 19:36 by Kevin Licona MD) MAGAÑA (dyspnea on exertion) (Acute) Atrial fibrillation with RVR (Acute) New onset atrial fibrillation Atrial fibrillation with RVR Large hiatal hernia Moderate tricuspid regurgitation Mild mitral regurgitation Right knee DJD Lumbar spondylosis Thoracic kyphosis Arthritis of right hip Lumbar spondylosis Left knee DJD Esophageal reflux Depression B12 deficiency Degenerative joint disease of left hip Vitamin D deficiency Tricuspid regurgitation Polyneuropathy Osteoporosis Iron deficiency Hypothyroidism Hypertension Hyperlipidemia Glaucoma Diastolic dysfunction Anxiety disorder Allergic rhinitis Surgical History History of left hip replacement History of esophagogastroduodenoscopy (EGD) History of colonoscopy History of tooth extraction Avascular necrosis of bone 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) Status post left total hip arthroplasty S/P appendectomy S/P cataract extraction RT/LEFT S/P ovarian cystectomy History of hysterectomy S/P dilation and curettage Family History Father Myocardial infarction age 50s Stroke Mother Depression Colorectal cancer Brother Coronary heart disease S/P CABG (coronary artery bypass graft) Denies family history of Ovarian cancer Prostate cancer Breast cancer Social History Smoking Status: Never smoker Second Hand Exposure: No; Do You Dip or Chew Tobacco: No; Hx Alcohol Use: No Hx Substance Use: No Preferred Language: Lithuanian Communication Ability: Effective Visual Impairment: No Limitations Hearing Ability: Normal Grain Combiner Required: No Beliefs That Will Affect Care: None marital status: / Current Living Situation: Alone current occupational status: retired current occupation: warehouse distribution manager How many Children do You have: 2 Feels Safe at Home: Yes Childhood Exposure to Second-Hand Smoke: No Diet: regular caffeine: Yes (tea/ soda ) during the past year weight has: remained stable Dental Care, Regularly: No Physical Activity Frequency: Daily Physical Activity Frequency Comment: housework; outside work Seatbelt Use: always Sunscreen Use: No Assistive Devices: Walker Review of Systems Review of Systems: See HPI above Physical Exam Physical Exam: General: no acute distress; pleasant affect; son at bedside; non-toxic appearing; frail appearing; cooperative; SpO2 96% on RA HEENT: normocephalic, atraumatic; no scleral icterus; PERRLA; vision and hearing grossly intact Neck: supple; no lymphadenopathy; trachea midline Skin: warm, dry without signs of tenting; no cyanosis; no rashes, bruising, lesions, or erythema noted CV: chest wall NTP; irregularly irregular rhythm tachycardic around 130 bpm; pulses intact and symmetric at radial, DP, and PT Lungs: no acute respiratory distress; symmetrical chest wall expansion; clear breath sounds across all lung tobar w/o adventitious sounds; no wheezing ABD: Soft, NTP; BS present; no rebound/guarding; no distention MSK: no tics or fasciculations; no edema noted in the LEs b/l, nonerythematous Neuro: A&Ox3; normal mood and affect; fluent speech; no focal deficits; sensation intact and symmetric in lower extremity bilaterally Results & Data Results & Data Vital Signs (Past 12 Hours) Vital Signs Temp Pulse Resp BP Pulse Ox O2 Del Method 08/22/24 13:04 132 H 08/22/24 12:37 36.6 C 140 H 20 145/99 H 96 Room Air Laboratory Results Abnormal lab results 08/22/24 Range/Units 12:32 Lymph # (Auto) 1.16 L (1.20-3.40) K/uL BUN/Creatinine Ratio 21.9 H (10-20) Glucose 103 H (70-99(Fasting)) mg/dl Alkaline Phosphatase 113 H (34-104) U/L Diagnostic Findings Chest X-Ray 08/22/24 12:53 XR chest 1V portable CLINICAL HISTORY: Dysrhythmia COMPARISON STUDY: 11/06/2023 FINDINGS: Stable large hiatal hernia. Stable cardiomegaly without pulmonary vascular congestion. There is stable mild blunting of the left costophrenic angle. Otherwise the lungs remain aerated. IMPRESSION: Stable exam. ACT 112: Negative or not required by law. Electronically signed by: Manny Chavez M.D. 08/22/2024 1:20 PM ECG Additional Comments: ECG revealed atrial fibrillation with RVR at 132 bpm; QTc 420 Code Status & VTE Plan Code Status Full code (discussed with both patient and patient's son at bedside; while she does have concerns about extended period of time on a mechanical ventilator, both she and her son are in agreement to remain a full code at this time). VTE Prophylaxis Plan VTE Prophylaxis will be ordered: Yes Supervising Physician Co-Signing Physician Notes Patient seen and examined, chart reviewed, case discussed with Tray Razo PA-C and I agree with the assessment and plan as above except as otherwise noted Labs and images reviewed Seen at the bedside. No chest pain at any point. Has had palpitations and her heart racing and predominant symptom has been fatigue. Did not think much of this until she was referred by her primary care provider. Has not passed out. No dyspnea, leg swelling. History of CHF. [id number] of 4. With/benefits of anticoagulation discussed, patient agreeable to anticoagulation. Anticipate transition to [facility] tomorrow morning. No clinical evidence of ACS, troponin is negative, no ischemic changes on EKG no sleep apnea is provoking factor. Had initial rate control improvement with 10 mg diltiazem x 1, subsequently returned to heart rate of around [id number]. IV metoprolol 5 mg IV as needed x 1 ordered. Will also start metoprolol twice daily and titrate as needed/tolerated. Follow echo to obtain EF prior to additional CCB use. On exam no lower extremity edema, lungs are clear, irir +tachycardic with a systolic murmur Agree with above PG Care Time/CCT Total # of Minutes Spent Total Time Spent with Patient: Total time spent is greater than 50% in coordination of care (as documented) at patient's floor/unit and/or counseling patient: Coding [place] [address] INT INP/OBS CARE 3/75MIN Patient Type Established Medical Decision Making High Complexity Diagnoses Atrial fibrillation with RVR I48.91 New onset atrial fibrillation I48.91
[2024-08-22] MEDS: METOPROLOL TARTRATE 1 MG/ML VIAL IV STA (14:45)
[2024-08-22] MEDS: Heparin IV Adult Wt-Based Low-Dose *NO* INITIAL Bolus Protocol IV STA (14:46)
[2024-08-22] MEDS: HEPARIN 25000 UNIT/500 ML D5W 25,000 UNITS/500 ML BAG IV SCH (14:46)
--- NOTE | 2024-08-22 16:19 | XCELERA ---
[id number]
[2024-08-22] MEDS ORDERED: FLUTICASONE PROPIONATE NA SPR 16 GM BTL PRN (18:20)
[2024-08-22] MEDS: FAMOTIDINE 20 MG TAB PO SCH (18:33)
[2024-08-22] MEDS: METOPROLOL TARTRATE 25 MG TAB PO SCH (18:33)
[2024-08-22] MEDS: AMITRIPTYLINE HCL 25 MG TAB PO SCH (21:16)
[2024-08-22] MEDS: FERROUS GLUCONATE 324 MG TAB PO SCH (21:17)
[2024-08-22 21:18] LABS: ANTI-Xa, UFH(UnfractionatedHep 0.29 IU/ml (0.3-0.7)
[2024-08-22] MEDS: CALCIUM CARBONATE 500 MG CHEWABLE TAB PO PRN (22:37)
[2024-08-23] MEDS: METOPROLOL TARTRATE 1 MG/ML VIAL IV PRN (00:46)
[2024-08-23 03:55] LABS: Basophils # (auto) 0.08 K/uL (0.00-0.20); Basophils % (auto) 1.2 %; Eosinophils # (auto) 0.07 K/uL (0.00-0.50); Hematocrit (blood only) 46.3 % (37.0-47.0); Hemoglobin 15.8 g/dl (12.0-16.0); Immature Granulocytes # (auto) 0.02 K/uL (0.01-0.20); Immature Granulocytes % (auto) 0.3 %; Lymphocytes # (auto) 0.91 K/uL (1.20-3.40); Lymphocytes % (auto) 13.6 %; Mean Corpuscular Hemoglobin 33.1 pg (25.0-34.0); Mean Corpuscular Hgb Conc 34.1 g/dL (32.0-36.0); Mean Corpuscular Volume 96.9 fL (80.0-100.0); Mean Platelet Volume 11.5 fL (9.4-12.4); Monocytes # (auto) 0.33 K/uL (0.11-0.59); Monocytes % (auto) 4.9 %; Platelet Count 244 K/uL (130-400); RDW Coefficient of Variation 13.1 % (11.5-14.5); RDW Standard Deviation 46.8 fL (36.4-46.3); Red Blood Count 4.78 M/uL (4.20-5.40); White Blood Count 6.71 K/ul (4.8-10.8)
[2024-08-23 04:11] LABS: BUN Creatinine Ratio 21.9 (10-20); Calcium 9.4 mg/dl (8.6-10.3); Creatinine Clr Calc Pharmacy 51.6 ml/min
[2024-08-23 04:32] LABS: ANTI-Xa, UFH(UnfractionatedHep 0.45 IU/ml (0.3-0.7)
[2024-08-23] MEDS: LEVOTHYROXINE SODIUM 112 MCG TABLET PO SCH (05:38)
[2024-08-23] MEDS: LOSARTAN POTASSIUM 50 MG TAB PO SCH (09:28)
[2024-08-23] MEDS: ASPIRIN 81 MG ECTAB PO SCH (09:28)
[2024-08-23] MEDS: amLODIPine BESYLATE 5 MG TAB PO SCH (09:29)
[2024-08-23] MEDS: dilTIAZem HCL 30 MG TAB PO STA (15:40)
[2024-08-23] MEDS: SIMETHICONE 80 MG CHEW PO PRN (18:22)
--- NOTE | 2024-08-23 18:27 | Hospitalist Progress Note ---
Date of Service August 23, 2024 Assessment & Plan (1) Atrial fibrillation with RVR: (2) New onset atrial fibrillation: Plan Shante is a pleasant 83-year-old female who presented on 01/22 for new onset A-fib RVR. #New onset atrial fibrillation with RVR Troponin WNL TSH WNL Diltiazem 10 mg IV x 1 in the ED; despite this patient's HR remained ~130 Metoprolol tartrate 5 mg IV PRN on-call for HR >130 bpm Echocardiogram ordered, pending Patient not currently anticoagulated [id number]: 4 Heparin IV started in the ED, transitioned to Eliquis Start cardizem gtt and cardizem 30mg TID Chronic stable conditions: HTNamlodipine, losartan Hypothyroidismthyroxine GERDfamotidine Disposition: Obs -admit to PCU telemetry Full code Heart healthy diet VTE PPx: IV heparin PT/OT Eval Admission and Anticipated Discharge Date Admission Date: August 22, 2024 Subjective says feels much better today, no chest pain, SOB, palpitations or lightheadedness Physical Exam Physical Exam: AAO##, Non focal Lungs clear Heart irregularly irregular, tachy PA Soft, NT, ND, BS+ Skin no rash Results & Data Results & Data Vital Signs (Past 12 Hours) Vital Signs Temp Pulse Pulse Resp BP Pulse Ox O2 Del Method 08/23/24 17:48 138/92 08/23/24 15:56 36.7 C 120 H 18 140/110 H 94 Room Air 08/23/24 14:22 123 H 08/23/24 11:47 36.7 C 123 H 18 142/96 H 93 Room Air 08/23/24 10:53 Room Air 08/23/24 07:51 36 C L 119 H 19 128/89 95 Room Air 08/23/24 07:00 116 H PG Care Time/CCT Total # of Minutes Spent Total Time Spent with Patient: Total time spent is greater than 50% in coordination of care (as documented) at patient's floor/unit and/or counseling patient: Coding Level of Care Code 96444 SUB INP/OBS CARE 2/35MIN Diagnoses Atrial fibrillation with RVR I48.91 New onset atrial fibrillation I48.91
[2024-08-23] MEDS: dilTIAZem HCL 125 MG in DEXTROSE 5% 100 ML IV SCH (19:13)
[2024-08-23] MEDS: dilTIAZem HCL 30 MG TAB PO SCH (20:06)
[2024-08-23] MEDS: APIXABAN 5 MG TABLET PO SCH (20:08)
[2024-08-23] MEDS ORDERED: dilTIAZem HCL 30 MG TAB PO SCH (21:00)
[2024-08-23] MEDS: STAT IV Infusion **Titration per Protocol STA (21:36)
[2024-08-24 02:55] LABS: Basophils # (auto) 0.06 K/uL (0.00-0.20); Basophils % (auto) 0.8 %; Eosinophils # (auto) 0.11 K/uL (0.00-0.50); Eosinophils % (auto) 1.5 %; Hematocrit (blood only) 40.7 % (37.0-47.0); Hemoglobin 13.7 g/dl (12.0-16.0); Immature Granulocytes # (auto) 0.03 K/uL (0.01-0.20); Immature Granulocytes % (auto) 0.4 %; Lymphocytes # (auto) 1.12 K/uL (1.20-3.40); Lymphocytes % (auto) 14.8 %; Mean Corpuscular Hemoglobin 32.5 pg (25.0-34.0); Mean Corpuscular Hgb Conc 33.7 g/dL (32.0-36.0); Mean Corpuscular Volume 96.7 fL (80.0-100.0); Mean Platelet Volume 11.9 fL (9.4-12.4); Monocytes % (auto) 7.9 %; Neutrophils # (auto) 5.63 K/uL (1.40-6.50); Neutrophils % (auto) 74.6 %; Platelet Count 228 K/uL (130-400); RDW Coefficient of Variation 13.1 % (11.5-14.5); RDW Standard Deviation 45.8 fL (36.4-46.3); Red Blood Count 4.21 M/uL (4.20-5.40); White Blood Count 7.55 K/ul (4.8-10.8)
[2024-08-24] MEDS: LACTATED RINGER'S 1,000 ML IV SCH (03:08)
[2024-08-24 03:10] LABS: BUN Creatinine Ratio 30.3 (10-20); Calcium 8.5 mg/dl (8.6-10.3); Creatinine Clr Calc Pharmacy 49.6 ml/min; Magnesium 1.9 mg/dl (1.7-2.4); Potassium 3.6 mmol/L (3.5-5.1)
[2024-08-24 04:16] LABS: Appearance Urine Clear (Clear); Bacteria Urine Automated None Seen (None Seen); Bilirubin Urine 1+ (Negative); Blood Urine Trace (Negative); Cast Urine Automated 0-2 /lpf (0-2); Color Urine Dark Yellow; Epithelial Cell Urine Auto 0-2 /hpf (0-2); Glucose Urine UA Negative (Negative); Ketones Urine Trace (Negative); Leukocyte Esterase Urine 1+ (Negative); Nitrite Urine Negative (Negative); Protein Urine 1+ (Negative); Specific Gravity Urine 1.026 (1.000-1.030); Urobilinogen Urine Negative (Negative); WBC Urine Automated 0-5 /hpf (0-5); pH Urine 5.5 (4.5-7.5)
[2024-08-24] MEDS: cefTRIAXone SODIUM 1,000 MG/50 ML BAG IV SCH (05:43)
[2024-08-24] MEDS: dilTIAZem HCL 180 MG CAPCR PO SCH (10:50)
--- NOTE | 2024-08-24 17:18 | Hospitalist Progress Note ---
Date of Service August 24, 2024 Assessment & Plan (1) Atrial fibrillation with RVR: (2) New onset atrial fibrillation: Plan Shante is a pleasant 83-year-old female who presented on 01/22 for new onset A-fib RVR. #New onset atrial fibrillation with RVR Troponin WNL TSH WNL Diltiazem 10 mg IV x 1 in the ED; despite this patient's HR remained ~130 Metoprolol tartrate 5 mg IV PRN on-call for HR >130 bpm Echocardiogram ordered, pending Patient not currently anticoagulated [id number]: 4 Heparin IV started in the ED, transitioned to Eliquis d/c cardizem gtt and start Cardizem CD, Up titrate the dose for better rate control Chronic stable conditions: HTNamlodipine, losartan Hypothyroidismthyroxine GERDfamotidine Disposition: Obs -admit to PCU telemetry Full code Heart healthy diet VTE PPx: IV heparin PT/OT Eval Admission and Anticipated Discharge Date Admission Date: August 22, 2024 Subjective says feels much better today, no chest pain, SOB, palpitations or lightheadedness Physical Exam Physical Exam: AAO##, Non focal Lungs clear Heart irregularly irregular, tachy PA Soft, NT, ND, BS+ Skin no rash Results & Data Results & Data Vital Signs (Past 12 Hours) Vital Signs Temp Pulse Pulse Resp BP Pulse Ox O2 Del Method 08/24/24 16:32 36.7 C 110 H 18 130/91 95 Room Air 08/24/24 16:00 103 H 08/24/24 11:16 36.5 C 75 16 147/83 H 93 Room Air 08/24/24 08:34 Room Air 08/24/24 07:34 36.5 C 75 18 125/82 93 Room Air 08/24/24 07:12 71 PG Care Time/CCT Total # of Minutes Spent Total Time Spent with Patient: Total time spent is greater than 50% in coordination of care (as documented) at patient's floor/unit and/or counseling patient: Coding Level of Care Code 90920 SUB INP/OBS CARE 2/35MIN Diagnoses Atrial fibrillation with RVR I48.91 New onset atrial fibrillation I48.91
[2024-08-24] MEDS: dilTIAZem HCL 30 MG TAB PO ONE (17:45)
[2024-08-25 07:21] LABS: Hemoglobin 13.8 g/dl (12.0-16.0); Mean Corpuscular Hgb Conc 34.5 g/dL (32.0-36.0); Mean Corpuscular Volume 95.7 fL (80.0-100.0); Mean Platelet Volume 11.9 fL (9.4-12.4); Platelet Count 212 K/uL (130-400); RDW Coefficient of Variation 12.8 % (11.5-14.5); RDW Standard Deviation 45.3 fL (36.4-46.3); Red Blood Count 4.18 M/uL (4.20-5.40)
[2024-08-25 07:38] LABS: BUN Creatinine Ratio 19.7 (10-20); Calcium 8.5 mg/dl (8.6-10.3); Creatinine Clr Calc Pharmacy 61.8 ml/min; Magnesium 1.9 mg/dl (1.7-2.4); Potassium 3.6 mmol/L (3.5-5.1)
[2024-08-25] MEDS: dilTIAZem HCL 240 MG CAPCR PO SCH (08:50)
--- NOTE | 2024-08-25 11:56 | Hospitalist Progress Note ---
Date of Service August 25, 2024 Assessment & Plan (1) Atrial fibrillation with RVR: (2) New onset atrial fibrillation: Plan Shante is a pleasant 83-year-old female who presented on 01/22 for new onset A-fib RVR. #New onset atrial fibrillation with RVR Improved HR overnight but mildly tachy again [id number]: 4 Heparin IV started in the ED, transitioned to Eliquis d/c cardizem gtt and start Cardizem CD, Up titrated the dose to 240 mg for this am but will increase to 300mg for better rate control Replete potassium and magnesium to optimal levels Chronic stable conditions: HTNamlodipine, losartan Hypothyroidismthyroxine GERDfamotidine Disposition: admit to PCU telemetry Full code Heart healthy diet VTE PPx: Eliquis PT/OT Eval Discharge pending PT/OT eval and better HR control Admission and Anticipated Discharge Date Admission Date: August 22, 2024 Subjective no complaints, no chest pain, SOB, palpitations or lightheadedness, tolerating PO, PT/OT eval pending, doesn't want to go to rehab but interested in home PT, lives alone but children live very close and says will provide assistance, no recent falls Physical Exam Physical Exam: AAO##, Non focal Lungs clear Heart irregularly irregular, tachy PA Soft, NT, ND, BS+ Skin no rash Results & Data Results & Data Vital Signs (Past 12 Hours) Vital Signs Temp Pulse Pulse Resp BP Pulse Ox O2 Del Method 08/25/24 11:26 36.7 C 112 H 18 132/87 94 Room Air 08/25/24 10:40 116 H 08/25/24 07:58 36.7 C 106 H 18 128/82 93 Room Air 08/25/24 07:00 Room Air 08/25/24 02:47 36.8 C 81 18 130/78 92 Room Air PG Care Time/CCT Total # of Minutes Spent Total Time Spent with Patient: Total time spent is greater than 50% in coordination of care (as documented) at patient's floor/unit and/or counseling patient: Coding Level of Care Code 43059 SUB INP/OBS CARE 2/35MIN Diagnoses Atrial fibrillation with RVR I48.91 New onset atrial fibrillation I48.91
[2024-08-25] MEDS: MAGNESIUM SULFATE / D5W 1 GM/100 ML BAG IV ONE (12:23)
[2024-08-25] MEDS: dilTIAZem HCl 60 MG TAB PO ONE (12:23)
[2024-08-25] MEDS: POTASSIUM CHLORIDE 20 MEQ/15 ML UDC PO STA (12:31)
[2024-08-25] MEDS: dilTIAZem HCL 30 MG TAB PO ONE (17:18)
[2024-08-25] MEDS: ACETAMINOPHEN 325 MG TAB PO PRN (22:57)
[2024-08-26 03:43] VITALS: O2SAT 94
[2024-08-26 06:28] LABS: Hematocrit (blood only) 40.3 % (37.0-47.0); Hemoglobin 13.8 g/dl (12.0-16.0); Mean Corpuscular Hemoglobin 32.7 pg (25.0-34.0); Mean Corpuscular Hgb Conc 34.2 g/dL (32.0-36.0); Mean Corpuscular Volume 95.5 fL (80.0-100.0); Mean Platelet Volume 11.9 fL (9.4-12.4); Platelet Count 228 K/uL (130-400); RDW Standard Deviation 45.1 fL (36.4-46.3); Red Blood Count 4.22 M/uL (4.20-5.40)
[2024-08-26 06:49] LABS: BUN Creatinine Ratio 13.2 (10-20); Calcium 8.6 mg/dl (8.6-10.3); Creatinine Clr Calc Pharmacy 55.4 ml/min; Magnesium 2.1 mg/dl (1.7-2.4); Potassium 3.9 mmol/L (3.5-5.1)
[2024-08-26 07:21] VITALS: BP 139/88; RESP 19; TEMP 97.3
[2024-08-26] MEDS: dilTIAZem HCL 300 MG CAPCR PO SCH (09:29)
[2024-08-26] MEDS: METOPROLOL TARTRATE 25 MG TAB PO SCH (09:30)
--- NOTE | 2024-08-26 10:19 | Discharge Summary ---
Discharge Summary Date of Service August 26, 2024 Principal Dx & Hospital Course #1 = Principal Diagnosis (1) Atrial fibrillation with RVR: New onset on admission. Cardiac echo reveals mild LVH with normal ejection fraction and moderate mitral regurgitation and tricuspid regurgitation. Metoprolol added today, August 26, to diltiazem for better rate control. She is hemodynamically stable. She is now on Eliquis. Previously on heparin drip. She is anxious to go home today, August 26. She will follow-up with her PCP for further care (2) Hypertension: Amlodipine and losartan have been discontinued. She is now on diltiazem and metoprolol. (3) Hypothyroidism: Stable. Continue current replacement therapy (4) Esophageal reflux: Stable. Continue current medical management Plan Home todayAugust 26, follow-up with PCP as soon as possible Admission HPI Per Admitting Provider Shante is a pleasant 83-year-old female with PMH of anxiety, glaucoma, HLD, HTN, hypothyroidism, iron deficiency, depression, and DJD. She was referred to the ED on 08/22 for new onset atrial fibrillation. Patient was at her wellness visit this morning for intermittent SOB. However on arrival, she was found to be tachycardic, and an EKG was taken that showed new onset A-fib with RVR. Patient reports she does not experience SOB at rest, but has been having dyspnea on exertion for the past 3 years. She denies chest palpitations. She does feel intermittent lightheadedness at times, which he attributes to vertigo, but denies dizziness like the room is spinning. Patient did not take her regular morning medicines today, as she was unsure if she should take it prior to blood work being drawn. She takes a baby aspirin daily for preventative prophylaxis; no history of heart stents or strokes. No PMH of diabetes, MD, heart failure, or DVT/PE. She does have a history of hypertension. The only recent change in medication was that she started on an butyryl inhaler in May when she had bronchitis; no prior history of asthma. She is still taking the albuterol inhaler twice per day for her MAGAÑA. She does have a history of issues with her thyroid, but is currently taking levothyroxine 112. No sick contacts. She does not use supplemental oxygen at home or CPAP at night. No prior history of issues with blood thinners, bleeding disorders, or GI bleeds. Patient denies smoking, tobacco use, or recent alcohol use. Patient is hypertensive at 145/99 and tachycardic at 132 bpm at time of admission. ED course: Diltiazem 10 mg IV Heparin IV NSS 500 mL IV ROS: Patient endorses lightheadedness, staggering at times, dry cough (attributes to allergies), and conversational dyspnea/MAGAÑA (which has been ongoing for the past 3 years) Patient denies fever, chills, night-sweats, dizziness, headache, chest pain, chest palpitations, SOB at rest, pleuritic CP, hemoptysis, abdominal pain, N/V/D, changes in urinary bowel habits, burning with urination, or blood in the urine or stool. Discharge Plan Discharge Items Patient Disposition: Home - Self-Care Reason For Visit: NEW ONSET A FIB RVR Discharge Diagnosis: New onset atrial fibrillation with rapid ventricular rate Activity: Resume your previous activity Non-emergency contact: Primary Care Provider Call non-emergency contact if: you have any medication questions and your symptoms worsen Follow-up/Referrals: Ofelia Cummings DO [Primary Care Provider] - Diet: Regular and Heart Healthy Addtl Attending Provider Instructions: Amlodipine and losartan have been discontinued. Eliquis is new for blood thinner. Diltiazem CD and metoprolol are new to help control the heart rate. Pending Studies at Discharge: Yes Studies:: Repeat EKG, free T3 and free T4 levels Stand-Alone Forms: My [facility], Smoking Cessation Medications and DC Order Prescriptions: New diltiazem HCl [Cardizem CD] 300 mg Capsule,Extended Release 24hr 300 mg PO QAM Qty: 30 0RF metoprolol tartrate 25 mg Tablet 25 mg PO BID Qty: 60 0RF Eliquis 5 mg Tablet 5 mg PO BID Qty: 30 0RF Continued amitriptyline 25 mg tablet 25 mg PO HS Qty: 90 3RF fluticasone propionate 50 mcg/actuation spray,suspension 2 spray INTNAS DAILY PRN (Reason: Congestion) Qty: 16 3RF Rx Instructions: filled 02/05/24 30 day supply administer into each nostril levothyroxine 112 mcg tablet 112 mcg PO DAILY Qty: 90 3RF aspirin [Adult Aspirin Regimen] 81 mg tablet,delayed release (DR/EC) 81 mg PO DAILY Rx Instructions: otc unable to verify ibuprofen 200 mg capsule 200 mg PO Q6H PRN (Reason: Pain) Rx Instructions: otc unable to verify ferrous gluconate 324 mg (38 mg iron) tablet 324 mg PO DAILY Qty: 90 3RF Rx Instructions: no fill history/otc unable to verify mecobalamin (vitamin B12) 1,000 mcg lozenge 1,000 mcg PO DAILY Rx Instructions: otc unable to verify allow to dissolve in mouth OR may chew lightly before swallowing albuterol sulfate 90 mcg/actuation HFA aerosol inhaler 2 puff inhalation Q6H PRN (Reason: shortness of breath or wheezing) Qty: 8.5 0RF Rx Instructions: no fill history available famotidine 20 mg tablet 20 mg PO DAILY Qty: 90 2RF Rx Instructions: no fill history/otc unable to verify Discontinued losartan 100 mg tablet 100 mg PO DAILY 90 Days Qty: 90 1RF Rx Instructions: Aurobindo necessary thanks amlodipine 2.5 mg tablet 2.5 mg PO DAILY Rx Instructions: TAKE ONE TABLET BY MOUTH DAILY Discharge Orders: Discharge Order (Routine); Ordered 08/26/24 Ordered By: Phillip Burciaga Admission Data Admit Date/Time: 08/26/24 08:43 Attending Provider: Phillip Burciaga Admit Provider: Tyson Evans Primary Care Provider: Ofelia Cummings Other Providers: Tyson Evans Hospital Stay Data Consultations 08/22/24 13:40 ED Decision to Admit Stat Pending Results Patient Have Any Pending Studies at Discharge: Yes Discharge Instructions Given to Patient (Per Discharging Provider) Amlodipine and losartan have been discontinued. Eliquis is new for blood thinner. Diltiazem CD and metoprolol are new to help control the heart rate. Total Time Total Time Spent Total Time Spent (In Minutes): 45 minutes Coding Level of Care Code 49376 INP/OBS DISCH >30 MIN Diagnoses Atrial fibrillation with RVR I48.91 Hypertension I10 Hypothyroidism E03.9 Esophageal reflux K21.9
[2024-08-26 11:19] VITALS: PULSE 82
== END 2024-08-26 12:19 | disposition home or self-care (01) ==
LOC: ED 12:32 → EDINP 12:32 → SUATTDRO 14:38 → 4W 18:20